=== PATIENT | male | born 2000 | race Caucasian/White ===

== ENCOUNTER 2020-05-22 23:02 | Emergency (ER) | payer OTHER ==
--- NOTE | 2020-05-23 00:35 | RAD ---
Exam: XR Wrist 3 Lt View STANDARD HISTORY: Left wrist pain after a fall. COMPARISON: None FINDINGS: Questionable subtle lucency through the waist of the scaphoid bone. This may be secondary to the trab ecular pattern in this region, but a subtle nondisplaced fracture cannot be excluded. No displaced fracture or dislocation is seen. No other osseous abnormality. IMPRESSION: Questionable subtle nondisplaced fracture involving the waist of scaphoid bone. Lucency could be rela majo to the trabecular pattern, but a subtle fracture cannot be excluded based on this exam. Follow-up views of the left wrist including scaphoid view after conservative management in 4-7 days i s recommended. Above findings discussed with Dr. Toscano in the emergency department on 05/22/2020 at 0033 hours.
== END 2020-05-23 00:14 | disposition home or self-care (01) ==
LOC: ERS 23:02
DX: S69.92XA Unspecified injury of left wrist, hand and finger(s), initial encounter (principal); W05.1XXA Fall from non-moving nonmotorized scooter, initial encounter